=== PATIENT | male | born 1960 ===

== ENCOUNTER 2025-02-18 06:30 | Day surgery (SDC) | payer BC, SELFPAY | END 2025-02-18 13:51 | disposition home or self-care (01) | LOC: GI 06:30 | PROVIDERS: ATTENDING PHYSICIAN Internal Medicine Gastroenterology | DX: K29.70 Gastritis, unspecified, without bleeding (principal); K31.89 Other diseases of stomach and duodenum; K21.9 Gastro-esophageal reflux disease without esophagitis | CPT/HCPCS: 43239; 88305; 88342 ==